=== PATIENT | male | born 1975 | race Two or more races ===

== ENCOUNTER → 2023-04-12 | Emergency (ER) | payer OTHER ==
[~2023-04-12] VITALS: Ht 167.6 cm; Wt 83.5 kg
== END | disposition home or self-care (01) ==
LOC: ER 17:53 → EDBD 18:08 → ER 18:08
DX: S82.291A Other fracture of shaft of right tibia, initial encounter for closed fracture (principal); W19.XXXA Unspecified fall, initial encounter; Y93.66 Activity, soccer; Y92.89 Other specified places as the place of occurrence of the external cause; Y99.8 Other external cause status